=== PATIENT | male | born 1990 | race American Indian/Alaskan Native ===

== ENCOUNTER 2016-08-06 10:56 | Day surgery (SDC) | payer MEDICAID ==
[~2016-08-06 10:56] MED LIST: ANCEF/STERILE WATER 2 GM/20 ML 2 GM/20 ML SYRINGE IV NR; HEPARIN 10,000 UNITS/10 ML ONE; MARCAINE 0.5% 30 ML INFILTRATI ONE; NACL 0.9% 1000 ML 1,000 ML IV SCH; NACL 0.9% 500 ML 500 ML ONE; NACL BACTERIOSTATIC INFILTRATI ONE
[2016-08-06] MEDS ORDERED: PEPCID IV NR (11:00)
[2016-08-06] MEDS ORDERED: DIPRIVAN 10 MG/ML IV ONE (11:11)
[2016-08-06] MEDS ORDERED: DILAUDID ONE (11:12)
[2016-08-06 11:43] LABS: Basophils % (Auto) 0.7 % (0.0-1.8); Eosinophils % (Auto) 1.7 % (0.0-4.3); Hematocrit 40.9 % (35.5-45.6); Hemoglobin 13.5 gm/dl (11.8-15.2); Mean Corpuscular HGB Conc 33 % (32-34); Mean Corpuscular Hemoglobin 29 pg (28-32); Mean Corpuscular Volume 87 fl (84-94); Platelet Count 173 K/mm3 (140-440); Red Blood Count 4.71 M/mm3 (3.65-5.03); Red Cell Distribution Width 15.4 % (13.2-15.2)
--- NOTE | 2016-08-06 11:45 | Anesthesia Day of Surgery ---
Anesthesia Day of Surgery - Day of Surgery Patient Examined: Yes Patient H&P Reviewed: Yes Patient is NPO: Yes
--- NOTE | 2016-08-06 11:45 | Anesthesia Consultation ---
Anesthesia Consult and Med Hx Date of service: 08/06/16 - Airway Anesthetic Teeth Evaluation: Good ROM Head & Neck: Adequate Mental/Hyoid Distance: Adequate Mallampati Class: Class I Intubation Access Assessment: Good - Pulmonary Exam CTA: Yes - Cardiac Exam Cardiac Exam: RRR - Pre-Operative Health Status ASA Pre-Surgery Classification: ASA4 Proposed Anesthetic Plan: General - Pulmonary Hx Smoking: Yes (CIGARETTES & CIGARS FOR 7 YRS, QUIT 04/2016) Hx Asthma: No COPD: No Hx Pneumonia: No Hx Sleep Apnea: No - Cardiovascular System Hx Hypertension: No Hx Heart Attack/AMI: No - Central Nervous System Hx Seizures: No CVA: No Hx Psychiatric Problems: No - Endocrine Hx Renal Disease: Yes (ESRS ON DIALYSIS, LAST DIALYSIS TUESDAY, RIGHT PERMACATH ) Hx End Stage Renal Disease: Yes Hx Cirrhosis: No Hx Insulin Dependent Diabetes: No Hx Hypothyroidism: No - Hematic Hx Anemia: Yes - Other Systems Hx Alcohol Use: No Hx Substance Use: No Hx Cancer: No - Additional Comments Anesthesia Medical History Comments: No previous anesthesia complications.
[2016-08-06] MEDS ORDERED: VERSED IV NR (12:00)
[2016-08-06 12:08] LABS: BUN/Creatinine Ratio 3.68; Calcium 9.2 mg/dL (8.4-10.2); Chloride 99.7 mmol/L (98-107); Potassium 4.1 mmol/L (3.6-5.0)
[2016-08-06] MEDS ORDERED: ePHEDrine SULFATE ONE (13:34)
[2016-08-06] MEDS ORDERED: XYLOCAINE MPF 2% ONE (13:44)
[2016-08-06] MEDS ORDERED: ZOFRAN ONE (13:44)
[2016-08-06] MEDS ORDERED: HEPARIN 10,000 UNITS/10 ML 2,000 UNIT in NACL 0.9% 500 ML 500 ML IR ONE (13:53)
[2016-08-06] MEDS ORDERED: MARCAINE 0.5% INFILTRATI ONE ×2 (14:06)
[2016-08-06] MEDS ORDERED: NACL 0.9% IR ONE (14:07)
--- NOTE | 2016-08-06 14:47 | Short Stay Summary ---
Short Stay Documentation Date of service: 08/06/16 Narrative H&P: See H&P - History H&P: obtained from office - Allergies and Medications Current Medications: Allergies No Known Allergies Allergy (Verified 04/26/16 23:07) Home Medications Medication Instructions Recorded Confirmed Last Taken Type Folic Acid/Vit Bcomp,C [Renal-Kerri 0.8 mg PO QDAY 08/04/16 08/06/16 08/05/16 History Tablet] Active Medications Famotidine (Pepcid) 20 mg IV PREOP NR Stop: 08/06/16 15:00 Last Admin: 08/06/16 11:57 Dose: 20 mg Cefazolin Sodium (Ancef/Sterile Water 2 Gm/20 Ml) 2 gm in 20 mls @ 80 mls/hr IV PREOP NR PRN Reason: Protocol Stop: 08/06/16 23:59 Sodium Chloride (Nacl 0.9% 1000 Ml) 1,000 mls @ 42 mls/hr IV DIRECT ARSH Last Admin: 08/06/16 11:20 Dose: 42 mls/hr Midazolam HCl (Versed) 2 mg IV PREOP NR Stop: 08/06/16 23:59 Last Admin: 08/06/16 12:20 Dose: 2 mg - Brief post op/procedure progress note Date of procedure: 08/06/16 Pre-op diagnosis: End-Stage Renal Disease Post-op diagnosis: same Procedure: Creation of Left Brachiocephalic Arteriovenous Fistula Anesthesia: GETA Surgeon: JUNITO KELLY Estimated blood loss: minimal Pathology: none Condition: stable - Disposition Condition at discharge: Good Disposition: DISCHARGED TO HOME OR SELFCARE Short Stay Discharge Plan Activity: other (no heavy lifting with left arm) Wound: open to air, keep clean and dry, other (okay to wash the wound with soap and water but do not soak in water) Follow up with: JUNITO KELLY MD [Staff Physician] - 14 Days Prescriptions: HYDROcodone/APAP 7.5-325 [[place] 7.5/325] 1 each PO Q6HR PRN #50 tablet PRN Reason: Pain
--- NOTE | 2016-08-06 14:49 | Operative Report ---
Operative Report Operative Report: Date of procedure: 08/06/2016 Pre-operative diagnosis: End-Stage Renal Disease Post-operative diagnosis: End-Stage Renal Disease Procedure(s): Creation of Left Brachial Artery to Cephalic Vein Arteriovenous Fistula Surgeon: Damon Weinstein MD Blowing Weasand: None Anesthesia: Gen. endotracheal anesthesia EBL: Minimal Counts: Correct Complications: None Condition: Stable Findings: Successful creation of left arm AV fistula with excellent thrill at the completion of the case. Specimen: None Indications: The patient is a 26-year-old male with history of renal failure on dialysis through a PermCath. He had a previous creation of a left [place] fistula that failed and now is still in need of long-term access. He had adequate cephalic vein for creation of fistula. He was given the risk, benefits, and alternative procedures and consented to procedure. Description of Procedure: The patient was brought to the operating room and laid in supine position after general endotracheal anesthesia was administered the patient was prepped and draped in normal sterile fashion. After anesthetizing the skin a transverse incision was created just below the antecubital crease. Dissection was carried down to the the cephalic vein using sharp dissection. The vein was dissected out both proximally and distally and suture ligated and divided distally. I then ran a 3 Sunny proximally in the vein, to ensure patency of the vein. Then flushed the vein with heparinized saline and flow was controlled with a bulldog clamp. I then dissected out the brachial artery through this incision circumferentially both proximal and distal and controlled the artery with vessel loops. I then placed the vessel loops on tension controlling the flow through the artery and created an arteriotomy using an 11 blade and Almeida scissors. I created an end to side anastomosis between the cephalic vein and brachial artery using a 6-0 Prolene in running fashion. Prior to completing the anastomosis I flushed the artery both proximally and distally and then advanced a 3 Sunny proximally to break the spasm in the artery. I then completed the anastomosis and removed all vessel loops allowing flow into the fistula which had an excellent thrill. I achieved hemostasis with a combination of direct pressure and electrocautery. Once hemostasis was achieved I anesthetized the wound with Marcaine. I then closed the wound in 2 layers and 3-0 Vicryl in a running fashion to close the deep dermal layer and 4- 0 Monocryl in a running fashion in the subcuticular layer. I dressed the wound with Surgicel. The patient tolerated the procedure well, all sponge needle and instrument counts were correct. The patient was taken to recovery in stable condition.
--- NOTE | 2016-08-06 15:51 | Post Anesthesia Evaluation ---
- Post Anesthesia Evaluation Patient Participated: Yes Airway Patent: Yes Stable Respiratory Function: Yes Temp > 96.8F: Yes Pain Manageable: Yes Adequeate Hydration: Yes Anesthesia Complications: No Block Receding Appropriately: Not Applicable
[2016-08-06 16:52] VITALS: BP 120/66
== END 2016-08-06 16:40 | disposition home or self-care (01) ==
LOC: OR 10:56
PROVIDERS: ATTEND Surgery Vascular Surgery
DX: N18.6 End stage renal disease (principal); F17.200 Nicotine dependence, unspecified, uncomplicated
CPT/HCPCS: 36415; 36818; 80048; 85025; J0690; J1170; J1644; J2250; J2405; J2704; J7030; J7040

== ENCOUNTER 2017-05-11 19:48 | Emergency (ER) | payer MEDICAID ==
[2017-05-11 20:47] LABS: Basophils # (Auto) 0.1 K/mm3 (0.0-0.1); Eosinophils # (Auto) 0.1 K/mm3 (0.0-0.4); Eosinophils % (Auto) 0.9 % (0.0-4.3); Hematocrit 31.6 % (35.5-45.6); Hemoglobin 10.8 gm/dl (11.8-15.2); Lymphocytes # (Auto) 2.1 K/mm3 (1.2-5.4); Lymphocytes % (Auto) 27.9 % (13.4-35.0); Mean Corpuscular HGB Conc 34 % (32-34); Mean Corpuscular Hemoglobin 30 pg (28-32); Mean Corpuscular Volume 88 fl (84-94); Monocytes # (Auto) 0.7 K/mm3 (0.0-0.8); Monocytes % (Auto) 8.6 % (0.0-7.3); Platelet Count 313 K/mm3 (140-440); Red Blood Count 3.59 M/mm3 (3.65-5.03); Red Cell Distribution Width 15.4 % (13.2-15.2)
[2017-05-11 21:02] LABS: Albumin 4.7 g/dL (3.9-5); Calcium 9.6 mg/dL (8.4-10.2)
[2017-05-11 21:52] LABS: Bilirubin,Urine NEG (Negative); Blood,Urine NEG (Negative); Color,Urine Straw (Yellow); Urobilinogen,Urine < 2.0 mg/dL (<2.0); WBC,Urine < 1.0 /HPF (0.0-6.0)
[2017-05-11] MEDS ORDERED: ZOFRAN ODT PO ONE (23:14)
--- NOTE | 2017-05-11 23:36 | Emergency Department Report ---
HPI - General Chief Complaint: Nausea/Vomiting/Diarrhea Time Seen by Provider: 05/11/17 23:02 - HPI HPI: 27-year-old -Cyp[place] male presents to the emergency department with a complaint of a one to 2 day history of some nausea and vomiting. He says he is unable to keep down any liquids or solids. He does not have nausea all the time but definitely when he tries to eat or drink. Sometimes he feels nauseated when he is sitting up or standing but it goes away when he is laying down. He does not have any current abdominal pain but said he had some tightness and/or cramping sensation earlier like there was a "knot" inside. He has a history of end-stage renal disease on hemodialysis on Tuesday/Tuesday/ Tuesday and did get this done today. His facility maintenance worker is Dr. Lydia Dodson. He does not have a primary care physician. He did not take anything for his symptoms prior to presentation. No recent travel or sick contacts at home. ED Past Medical Hx - Past Medical History Previous Medical History?: Yes Hx Hypertension: No Hx Heart Attack/AMI: No Hx Congestive Heart Failure: No Hx Diabetes: No Hx Renal Disease: Yes (ESRS ON DIALYSIS, LAST DIALYSIS TUESDAY, RIGHT PERMACATH ) Hx Seizures: No Hx Asthma: No Hx COPD: No Hx HIV: No - Surgical History Past Surgical History?: Yes Additional Surgical History: Left AV fistula - Social History Smoking Status: Never Smoker Substance Use Type: None - Medications Home Medications: Home Medications Medication Instructions Recorded Confirmed Last Taken Type Folic Acid/Vit B Complex and C 0.8 mg PO QDAY 08/04/16 08/06/16 08/05/16 History [Renal-Kerri Tablet] HYDROcodone/APAP 7.5-325 [[place] 1 each PO Q6HR PRN #50 tablet 08/06/16 Unknown Rx 7.5/325] Ondansetron [Zofran Odt] 4 mg PO Q8H PRN #10 tab.rapdis 05/12/17 Unknown Rx ED Review of Systems ROS: Stated complaint: N/V Other details as noted in HPI Comment: All other systems reviewed and negative Constitutional: denies: chills, fever Eyes: denies: eye pain, eye discharge, vision change ENT: denies: ear pain, throat pain Respiratory: denies: cough, shortness of breath, wheezing Cardiovascular: denies: chest pain, palpitations Gastrointestinal: nausea, vomiting Genitourinary: denies: urgency, dysuria Musculoskeletal: denies: back pain, joint swelling, arthralgia Skin: denies: rash, lesions Neurological: denies: headache, weakness, paresthesias Physical Exam - Physical Exam Vital Signs: Vital Signs 05/11/17 20:27 Temperature 99.3 F Pulse Rate 18 L Respiratory 18 Rate Blood Pressure 117/65 O2 Sat by Pulse 98 Oximetry Physical Exam: GENERAL: The patient is well-developed well-nourished. HENT: Normocephalic. Atraumatic. Patient has moist mucous membranes. EYES: Extraocular motions are intact. Pupils equal reactive to light bilaterally. NECK: Supple. Trach is midline. CHEST/LUNGS: Clear to auscultation. There is no respiratory distress noted. HEART/CARDIOVASCULAR: Regular. There is no tachycardia. There is no murmur. ABDOMEN: Abdomen is soft, nontender. Patient has normal bowel sounds. There is no abdominal distention. SKIN: Skin is warm and dry. NEURO: The patient is awake, alert, and oriented. The patient is cooperative. The patient has no focal neurologic deficits. The patient has normal speech. MUSCULOSKELETAL: There is no tenderness or deformity. There is no limitation range of motion. There is no evidence of acute injury. There is a patent left upper extremity dialysis fistula. ED Course Vital Signs 05/11/17 20:27 Temperature 99.3 F Pulse Rate 18 L Respiratory 18 Rate Blood Pressure 117/65 O2 Sat by Pulse 98 Oximetry ED Medical Decision Making - Lab Data Result diagrams: 05/11/17 20:35 05/11/17 20:35 - Medical Decision Making Patient presents with a few days of some nausea and vomiting. He has been able to keep down some fluid but has more difficulty with solids. However his labs are unremarkable including no leukocytosis, electrolyte abnormalities or glucose abnormalities. There is renal insufficiency. The patient is chronically on hemodialysis. He was given a Zofran ODT and upon reevaluation he says he is feeling improved. He was able to keep down some water and/or juice to pass an oral challenge. He has been encouraged to follow up with his primary care doctor and/or facility maintenance worker but to return to the emergency Department with any worsening of symptoms or any acute distress. - Differential Diagnosis viral syndrome, food poisoning, gastritis Critical Care Time: No Critical care attestation.: If time is entered above; I have spent that time in minutes in the direct care of this critically ill patient, excluding procedure time. ED Disposition Clinical Impression: End stage renal disease on dialysis Nausea & vomiting Qualifiers: Vomiting type: unspecified Vomiting Intractability: non-intractable Qualified Code(s): R11.2 - Nausea with vomiting, unspecified Disposition: - TO HOME OR SELFCARE Is pt being admited?: No Condition: Stable Instructions: Chronic Kidney Disease (ED), Acute Nausea and Vomiting (ED) Additional Instructions: Please follow-up with your primary care physician in the next few days. Increase your oral rehydration. Return to the emergency Department with any worsening of your symptoms or any acute distress. Prescriptions: Ondansetron [Zofran Odt] 4 mg PO Q8H PRN #10 tab.rapdis PRN Reason: Nausea Referrals: LYDIA DODSON [employer] [Primary Care Provider] - 3-5 Days Time of Disposition: 00:57
[2017-05-12 01:22] VITALS: BP 125/67
== END 2017-05-12 01:25 | disposition home or self-care (01) ==
LOC: ED 19:48
DX: R11.2 Nausea with vomiting, unspecified (principal); N18.6 End stage renal disease
CPT/HCPCS: 36415; 80053; 81001; 85025; 99283; Q0162